=== PATIENT | male | born 1990 | race Caucasian/White ===

== ENCOUNTER 2023-08-17 12:54 | Emergency (ER) | payer BC, SELFPAY ==
--- NOTE | ~2023-08-17 | XR_ITS ---
EXAMINATION: XR abdomen obstructive series DATE: 08/17/2023 13:36 INDICATION: Constipation. TECHNIQUE: Upright and supine views of the abdomen on 4 radiographs were obtained. COMPARISON: CT abdomen and pelvis 04/15/16 FINDINGS: There are no dilated loops of bowel. There is a small volume of stool in the colon. No free intraperitoneal gas. There are phleboliths in the pelvis. IMPRESSION: 1. Normal bowel gas pattern. Reviewed, dictated and finalized at location A.
[2023-08-17 13:00] VITALS: BP 145/88; PULSE 78; RESP 20; TEMP 36.6; O2SAT 100
--- NOTE | 2023-08-17 13:10 | ED.GENADULT ---
HPI - General Adult General Chief complaint: Abdominal Pain Stated complaint: Stomach pains/constipated Time Seen by Provider: 08/17/23 13:10 Source: patient, RN notes reviewed and old records reviewed Mode of arrival: ambulatory Limitations: no limitations History of Present Illness HPI narrative: 33 year old male who preents to express care with complaints of having some abdominal discomfort and not having a good bowel movement for about a week. Patient reports some mid abdominal cramping discomfort to his mid abdomen region with some radiation to left abdomen, denies any sharp pain. Patient reports that he has had a few small stools only, took Miralax once with no results. Patient reports that in 2017 he was hospitalized for what they thought was appendicitis but reports that he didn't have to have surgery it sealed off. Patient lost part of left lower leg in auger accident at work has prosthesis. complaint: constipation Onset (ago): week(s) (1) Location: abdomen (mid abdomen) Severity: mild Treatments prior to arrival: other (one dose of Miralax) Related Data Home Medications Medication Instructions Recorded Confirmed No Home Medications 08/17/23 08/17/23 Allergies Allergy/AdvReac Type Severity Reaction Status Date / Time No Known Allergies Allergy Verified 08/17/23 13:07 Review of Systems Review of Systems: CONSTITUTIONAL: Denies fever, chills, or sweats. ENT: Denies rhinorrhea, congestion, sore throat, or otalgia. CARDIOVASCULAR: Denies chest pain, palpitations, or edema. RESPIRATORY: Denies cough or dyspnea. GASTROINTESTINAL: Reports no sharp abdominal pain,no nausea, vomiting, or diarrhea.reports constipation GENITOURINARY: Denies dysuria or hematuria. SKIN: Denies rash or itching. MUSCULOSKELETAL: Denies back pain, joint pain, or myalgia. NEUROLOGIC: Denies headache, numbness, or weakness. 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 There is no relevant family history pertinent to the presenting complaint Exam Narrative: GENERAL: Well-appearing, well-nourished, and in no acute distress. HEAD: Normocephalic, atraumatic. EYES: PERRLA, conjunctivae clear, and EOMI. ENT: Nares clear. Mucous membranes moist. Oropharynx without edema, erythema, or lesions. Tonsils not enlarged and without exudate. NECK: Supple. No lymphadenopathy CHEST: Speaks in full sentences. No respiratory distress. HEART: Regular rate and rhythm. ABDOMEN: Soft, flat, nondistended. No guarding, rebound tenderness, or rigid. No pulsatilla masses. Bowel sounds present in all four quadrants. No organomegaly. Negative Santiago?s sign. No periumbilical tenderness.Negative McBurney point tenderness, No Supra public tenderness or distension. Good femoral pulses bilaterally. No hernia noted. No scars or surface trauma.reports constipation SKIN: Warm, dry, no rash. NEURO:? Alert and oriented x3. PSYCH: Normal mood and affect Course Course Emergency Course: Patient is aware of diagnosis, understands and agrees to treatment pl
== END 2023-08-17 14:14 | disposition home or self-care (01) ==
PROVIDERS: Emergency Provider Registered Nurse; PCP Nurse Practitioner Family
DX: K59.00 Constipation, unspecified (principal); F17.210 Nicotine dependence, cigarettes, uncomplicated; Z89.512 Acquired absence of left leg below knee
CPT/HCPCS: 74019; 99213; G0463